=== PATIENT | male | born 1930 | race Caucasian/White ===

== ENCOUNTER 2018-07-26 02:24 | Emergency (ER) | payer OTHER ==
[~2018-07-26] VITALS: Ht 172.7 cm; Wt 59.0 kg
[2018-07-26 02:30] VITALS: Ht 172.7 cm; Wt 59.0 kg
[2018-07-26 04:30] VITALS: BP 108/83
== END 2018-07-26 05:14 | disposition home or self-care (01) ==
LOC: ED 02:24
DX: J11.1 Influenza due to unidentified influenza virus with other respiratory manifestations (principal); I10 Essential (primary) hypertension; E11.9 Type 2 diabetes mellitus without complications; F03.90 Unspecified dementia, unspecified severity, without behavioral disturbance, psychotic disturbance, mood disturbance, and anxiety; Z95.0 Presence of cardiac pacemaker
CPT/HCPCS: 87804; Q0092